=== PATIENT | male | born 1985 | race Caucasian/White ===

== ENCOUNTER 2023-01-07 20:22 | Emergency (ER) | payer OTHER | END 2023-01-07 23:13 | disposition home or self-care (01) | LOC: JD.ED 20:22 | DX: S93.411A Sprain of calcaneofibular ligament of right ankle, initial encounter (principal); Z88.0 Allergy status to penicillin; Z79.82 Long term (current) use of aspirin; X50.1XXA Overexertion from prolonged static or awkward postures, initial encounter; Y93.64 Activity, baseball | CPT/HCPCS: 73610-26-RT; 73610-RT; 99283 ==